=== PATIENT | female | born 1945 | race Caucasian/White ===

== ENCOUNTER 2018-09-02 10:31 | Emergency (ER) | payer MEDICARE, OTHER, SELFPAY ==
[2018-09-02 10:32] VITALS: BP 162/92; PULSE 90; RESP 16; TEMP 36.6; O2SAT 99; BMI 34.9
--- NOTE | 2018-09-02 10:55 | CT_ITS ---
STUDY: CT ABDOMEN AND PELVIS WITHOUT CONTRAST REASON FOR EXAM: Female, 73 years old. One-week history of left flank pain. RADIATION DOSAGE (If Supplied By Facility): CTDIvol = ( 17.74 ) mGy, DLP = ( 917.58 ) mGycm TECHNIQUE: Transaxial images were obtained from the dome of the diaphragm to the symphysis pubis without oral contrast, and without intravenous contrast. Sagittal and coronal images were reconstructed. Individualized dose optimization techniques were used for this CT. COMPARISON: None. FINDINGS: The visualized lung bases are unremarkable. The visualized portions of the heart are within normal limits. Normal liver. Normal gallbladder and extrahepatic biliary system. Normal spleen. Normal pancreas. Normal bilateral adrenal glands. There is a 5.5 mm calculus in the upper midportion of the right kidney. Horseshoe kidney. Findings suggestive of a left parapelvic renal cyst measuring 5.4 cm x 4.2 cm. I cannot rule out left hydronephrosis. There is a small hiatal hernia. Normal small intestine. There are multiple colonic diverticula consistent with diverticulosis. The appendix is visualized and appears normal. There is diffuse atherosclerotic calcification of the abdominal aorta and the major visceral branches, without a demonstrated aneurysm. Normal inferior vena cava. Normal retroperitoneum. Normal urinary bladder. There is absence of the uterus consistent with a prior hysterectomy. Normal abdominal wall. There are diffuse degenerative changes of the visualized lumbar spine. Straightening of the normal lumbar lordosis. CT/Abdomen/Pelvis without Cont IMPRESSION: Horseshoe kidney. 5.5 mm nonobstructive calculus in the mid inferior aspect of the right kidney. Findings suggestive of a left parapelvic cyst. Correlation with ultrasound is recommended. Electronically Signed: Judson Guerra MD at 12:33 EST Tel [phone], Service support ,
--- NOTE | 2018-09-02 10:56 | EKG12_ITS ---
Test Reason : FLANK PAIN Blood Pressure : / mmHG Vent. Rate : 069 BPM Atrial Rate : 069 BPM P-R Int : 180 ms QRS Dur : 094 ms QT Int : 412 ms P-R-T Axes : 033 -20 022 degrees QTc Int : 441 ms Normal sinus rhythm Normal ECG No previous ECGs available Confirmed by LILLIAN HERNANDEZ, HERVE ([id number]), avid editor RACHEL PATEL ([id number] on 09/11/2018 4:04:41 PM Referred By: MEGHNA Confirmed By:HERVE SNYDER MD
--- NOTE | 2018-09-02 10:57 | ED.VISSUMM ---
- ER Visit Summary Date of Service: 09/02/18 Chief Complaint: Left flank pain History of Present Illness: The patient is a 73 F who presents for 1 week of intermittent left-sided flank pain. Pain is described as sharp and worse with standing and walking. Patient is tried heat, Tylenol and ibuprofen with some relief. She has had associated nausea but denies fever, chest pain, shortness of breath, cough, abdominal pain, vomiting, diarrhea or constipation. She denies dysuria, hematuria but has had some frequency. She states she has been drinking more water thinking it might be a kidney issue. She has no prior history of kidney stones. History remarkable for GERD. Patient is not on any medications at this time. She does not drink or use tobacco. Physical Examination: Vital signs: afebrile, hemodynamically stable, no hypoxia on room air General: well nourished, well developed, in no distress Skin: warm, dry, no rash, no pallor HEENT: normocephalic and atraumatic; PERRL, EOMI, moist mucous membranes Cardiovascular: regular rate and rhythm without murmurs, no peripheral edema, 2+ pulses all distal extremities Respiratory: No increased work of breathing, lungs are clear to auscultation bilaterally, no rales, rhonchi or wheezing, no chest wall tenderness, no vesicular rash Abdominal: Abdomen is soft, nontender with normoactive bowel sounds, no guarding or rebound, no masses no CVA tenderness Back: No midline tenderness, deformities or step-offs, no paraspinal tenderness MSK: Moves all extremities, no deformities, normal strength Neuro: Awake and alert, oriented ?4. No facial droop, sensation and motor function intact and symmetric Test Results: Abnormal Lab Results 09/02/18 09/02/18 09/02/18 10:46 11:05 11:05 WBC 6.1 RBC 4.84 Hgb 14.6 Hct 42.2 MCV 87.2 MCH 30.2 MCHC 34.6 RDW 11.8 RDW Differential 37.5 Plt Count 308 MPV 10.3 Immature Gran % (Auto) 0.200 Neut % (Auto) 56.6 Lymph % (Auto) 31.8 [place] % (Auto) 9.5 Eos % (Auto) 0.8 Baso % (Auto) 1.1 H Absolute Neuts (auto) 3.5 Absolute Lymphs (auto) 1.94 Total Counted Not Reportable Sodium 134 L Potassium 3.4 L Chloride 97 L Carbon Dioxide 26.0 Anion Gap 11 BUN 8 Creatinine 0.62 Estim Creat Clear Calc 41.45 Est GFR (MDRD) Af Amer 121 Est GFR (MDRD) Non-Af 100 BUN/Creatinine Ratio 12.8 Glucose 133 H Calcium 8.7 Total Bilirubin 0.50 AST 22 ALT 32 Alkaline Phosphatase 64 Troponin I < 0.015 Total Protein 7.1 Albumin 3.7 Globulin 3.4 Albumin/Globulin Ratio 1.1 Lipase 106 Urine Color Yellow Urine Clarity Sl. Cloudy Urine pH 7.0 Ur Specific [place] 1.010 Urine Protein 15 H Urine Glucose (UA) Normal Urine Ketones 15 H Urine Occult Blood 25 H Urine Nitrite Positive H Urine Bilirubin Negative Urine Urobilinogen Normal Ur Leukocyte Esterase 500 H Urine RBC 0-5 SEEN Urine WBC 10-25 SEEN Ur Squamous Epith Cells 0-5 SEEN Urine Bacteria 4+ Urine Mucus 0 SEEN Clinical Impression(s) from Imaging Studies Abdomen/Pelvis CT 09/02/18 10:55 IMPRESSION: Horseshoe kidney. 5.5 mm nonobstructive calculus in the mid inferior aspect of the right kidney. Findings suggestive of a left parapelvic cyst. Correlation with ultrasound is recommended. Electronically Signed: Judson Guerra MD at 12:33 EST Tel [phone], Service support , Chest X-Ray 09/02/18 11:15 IMPRESSION: Hyperinflation. No acute abnormality is seen. Electronically Signed: Judson Guerra MD at 12:33 EST Tel [phone], Service support , Medications Given Discontinued Medications Hydrocodone Bitart/Acetaminophen ([place] 5mg-325mg) 1 tablet PO X1 ONE Stop: 09/02/18 14:07 Last Admin: 09/02/18 14:20 Dose: 1 tablet Cephalexin (Keflex) 500 mg PO X1 ONE Stop: 09/02/18 14:07 Last Admin: 09/02/18 14:20 Dose: 500 mg Sodium Chloride () 1,000 mls @ 250 mls/hr IV .Q4H HEMALATHA Last Admin: 09/02/18 11:02 Dose: 250 mls/hr Emergency Department Course and Treatment: Patient was offered and declined pain medication. She is complaining of intermittent left-sided flank pain, with no significant findings on exam that would be unequivocal for a musculoskeletal back pain. Her pain is located in the left thoracic back, and she states it feels more like an inside pain. Workup was performed to evaluate for renal or other intra-abdominal pathology, as well as lung or cardiac pathology, given that she is an elderly female. Chest x-ray showed no infiltrates or acute process. CT flank showed a horseshoe kidney without any noted perinephric stranding or obstructing stones. EKG showed sinus rhythm without ischemia or ectopy. Troponin negative. No leukocytosis. No electrolyte derangements. Urine was positive for infection. Patient was afebrile and had minimal pain while in the emergency department. She did request pain medication finally was given 1 dose of [place]. Patient's workup is most consistent with an early pyelonephritis in the flank pain in the urine infection. Patient is very well-appearing, has unremarkable lab work and is afebrile. She was amenable to oral antibiotic treatment. She was started on keflex for 14 days to follow-up with her doctor for reevaluation if she is not having improvement. Culture is pending. Patient given return precautions. Discharged home well-appearing. Treatment Plan: [] Disposition: [] Impression: Left flank pain, early pyelonephritis This note was generated with [employer] dictation software. It may contain incorrect words, spelling, and punctuation that were not noted in review of the chart prior to signing ED Disposition - Plan for ED Patient: Disposition: Home or Assisted Living Chief Complaint: Flank Pain Instructions: ED Kidney Infec Female Prescriptions: Hydrocodone Bitart/Apap 5-325 [[place] 5MG-325MG] 1 tab PO Q6H PRN PRN 3 Days #8 tab PRN Reason: Pain Cephalexin [Keflex] 500 mg PO Q12 #28 cap Referrals: Sulema Mullins [Primary Care Provider] - 3-5 Days if not improving Additional Instructions: Take the antibiotic as prescribed for your kidney infection. If you develop a high fever, inability to eat, severe abdominal pain, uncontrolled vomiting, or have any other new or concerning symptoms, please return immediately to the emergency department for another evaluation. Follow-up with your doctor if you are not having improvement in 3 days. Continue to use Tylenol and ibuprofen for mild to moderate pain. You may use the norco for severe or nighttime pain. Do not do any dangerous activities, such as driving or walking up and down stairs while taking the norco, as it may make you sleepy or dizzy. If you have any worsening of your condition or any new concerning symptoms, please return immediately to the emergency department for another evaluation.
--- NOTE | 2018-09-02 11:01 | ED.DCSUM_ITS ---
- ER Visit Summary Date of Service: 09/02/18 Chief Complaint: Left flank pain History of Present Illness: The patient is a 73 F who presents for 1 week of intermittent left-sided flank pain. Pain is described as sharp and worse with standing and walking. Patient is tried heat, Tylenol and ibuprofen with some relief. She has had associated nausea but denies fever, chest pain, shortness of breath, cough, abdominal pain, vomiting, diarrhea or constipation. She denies dysuria, hematuria but has had some frequency. She states she has been drinking more water thinking it might be a kidney issue. She has no prior history of kidney stones. History remarkable for GERD. Patient is not on any medications at this time. She does not drink or use tobacco. Physical Examination: Vital signs: afebrile, hemodynamically stable, no hypoxia on room air General: well nourished, well developed, in no distress Skin: warm, dry, no rash, no pallor HEENT: normocephalic and atraumatic; PERRL, EOMI, moist mucous membranes Cardiovascular: regular rate and rhythm without murmurs, no peripheral edema, 2+ pulses all distal extremities Respiratory: No increased work of breathing, lungs are clear to auscultation bilaterally, no rales, rhonchi or wheezing, no chest wall tenderness, no vesicul ar rash Abdominal: Abdomen is soft, nontender with normoactive bowel sounds, no guarding or rebound, no masses no CVA tenderness Back: No midline tenderness, deformities or step-offs, no paraspinal tenderness MSK: Moves all extremities, no deformities, normal strength Neuro: Awake and alert, oriented ?4. No facial droop, sensation and motor function intact and symmetric Test Results: Abnormal Lab Results 09/02/18 09/02/18 09/02/18 10:46 11:05 11:05 WBC 6.1 RBC 4.84 Hgb 14.6 Hct 42.2 MCV 87.2 MCH 30.2 MCHC 34.6 RDW 11.8 RDW Differential 37.5 Plt Count 308 MPV 10.3 Immature Gran % (Auto) 0.200 Neut % (Auto) 56.6 Lymph % (Auto) 31.8 [place] % (Auto) 9.5 Eos % (Auto) 0.8 Baso % (Auto) 1.1 H Absolute Neuts (auto) 3.5 Absolute Lymphs (auto) 1.94 Total Counted Not Reportable Sodium 134 L Potassium 3.4 L Chloride 97 L Carbon Dioxide 26.0 Anion Gap 11 BUN 8 Creatinine 0.62 Estim Creat Clear Calc 41.45 Est GFR (MDRD) Af Amer 121 Est GFR (MDRD) Non-Af 100 BUN/Creatinine Ratio 12.8 Glucose 133 H Calcium 8.7 Total Bilirubin 0.50 AST 22 ALT 32 Alkaline Phosphatase 64 Troponin I < 0.015 Total Protein 7.1 Albumin 3.7 Globulin 3.4 Albumin/Globulin Ratio 1.1 Lipase 106 Urine Color Yellow Urine Clarity Sl. Cloudy Urine pH 7.0 Ur Specific [place] 1.010 Urine Protein 15 H Urine Glucose (UA) Normal Urine Ketones 15 H Urine Occult Blood 25 H Urine Nitrite Positive H Urine Bilirubin Negative Urine Urobilinogen Normal Ur Leukocyte Esterase 500 H Urine RBC 0-5 SEEN Urine WBC 10-25 SEEN Ur Squamous Epith Cells 0-5 SEEN Urine Bacteria 4+ Urine Mucus 0 SEEN Clinical Impression(s) from Imaging Studies Abdomen/Pelvis CT 09/02/18 10:55 IMPRESSION: Horseshoe kidney. 5.5 mm nonobstructive calculus in the mid inferior aspect of the right kidney. Findings suggestive of a left parapelvic cyst. Correlation with ultrasound is recommended. Electronically Signed: Judson Guerra MD at 12:33 EST Tel [phone], Service support , Chest X-Ray 09/02/18 11:15 IMPRESSION: Hyperinflation. No acute abnormality is seen. Electronically Signed: Judson Guerra MD at 12:33 EST Tel [phone], Service support , Medications Given Discontinued Medications Hydrocodone Bitart/Acetaminophen ([place] 5mg-325mg) 1 tablet PO X1 ONE Stop: 09/02/18 14:07 Last Admin: 09/02/18 14:20 Dose: 1 tablet Cephalexin (Keflex) 500 mg PO X1 ONE Stop: 09/02/18 14:07 Last Admin: 09/02/18 14:20 Dose: 500 mg Sodium Chloride () 1,000 mls @ 250 mls/hr IV .Q4H HEMALATHA Last Admin: 09/02/18 11:02 Dose: 250 mls/hr Emergency Department Course and Treatment: Patient was offered and declined pain medication. She is complaining of intermittent left-sided flank pain, with no significant findings on exam that would be unequivocal for a musculoskeletal back pain. Her pain is located in the left thoracic back, and she states it feels more like an inside pain. Workup was performed to evaluate for renal or other intra-abdominal pathology, as well as lung or cardiac pathology, given that she is an elderly female. Chest x-ray showed no infiltrates or acute process. CT flank showed a horseshoe kidney without any noted perinephric stranding or obstructing stones. EKG showed sinus rhythm without ischemia or ectopy. Troponin negative. No leukocytosis. No electrolyte derangements. Urine was positive for infection. Patient was afebrile and had minimal pain while in the emergency department. She did request pain medication finally was given 1 dose of [place]. Patient's workup is most consistent with an early pyelonephritis in the flank pain in the urine infection. Patient is very well- appearing, has unremarkable lab work and is afebrile. She was amenable to oral antibiotic treatment. She was started on keflex for 14 days to follow-up with her doctor for reevaluation if she is not having improvement. Culture is pending. Patient given return precautions. Discharged home well-appearing. Treatment Plan: [] Disposition: [] Impression: Left flank pain, early pyelonephritis This note was generated with [employer] dictation software. It may contain incorrect words, spelling, and punctuation that were not noted in review of the chart p rior to signing ED Disposition - Plan for ED Patient: Disposition: Home or Assisted Living Chief Complaint: Flank Pain Instructions: ED Kidney Infec Female Prescriptions: Hydrocodone Bitart/Apap 5-325 [[place] 5MG-325MG] 1 tab PO Q6H PRN PRN 3 Days #8 tab PRN Reason: Pain Cephalexin [Keflex] 500 mg PO Q12 #28 cap Referrals: Sulema Mullins [Primary Care Provider] - 3-5 Days if not improving Additional Instructions: Take the antibiotic as prescribed for your kidney infection. If you develop a high fever, inability to eat, severe abdominal pain, uncontrolled vomiting, or have any other new or concerning symptoms, please return immediately to the emergency department for another evaluation. Follow-up with your doctor if you are not having improvement in 3 days. Continue to use Tylenol and ibuprofen for mild to moderate pain. You may use the norco for severe or nighttime pain. Do not do any dangerous activities, such as driving or walking up and down stairs while taking the norco, as it may make you sleepy or dizzy. If you have any worsening of your condition or any new concerning symptoms, please return immediately to the emergency department for another evaluation.
[2018-09-02] MEDS: 0.9% Normal Saline 1,000 ML 250 ML IV (11:02)
[2018-09-02 11:07] LABS: Mucous, Urine 0 SEEN /hpf (<or=2+)
[2018-09-02 11:09] LABS: Color, Urine Yellow (Yellow); Glucose, Dipstick Normal (Normal); Ketone-Dipstick 15 mg/dl (Negative); Leukocyte Esterase-Dipstick 500 /ul (Negative); Nitrite-Dipstick Positive (Negative); Occult Blood-Urine 25 /ul (Negative); Protein-Dipstick 15 mg/dl (Negative); Urine Bilirubin Dipstick Negative (Negative); Urine Clarity Sl. Cloudy (Clear); Urine Urobilinogen Normal (Normal)
[2018-09-02 11:14] LABS: Absolute Lymphocyte Count 1.94 X10^3/ul (0.83-4.51); Absolute Neutrophil Count 3.5 X10^3/uL (2.0-7.7); Basophil# 0.07 X10^3/uL; Basophil% 1.1 % (0-1); Eosinophil# 0.05 X10^3/uL; Eosinophils% 0.8 % (0-5); Hematocrit 42.2 % (37-47); Hemoglobin 14.6 g/dl (12.0-15.0); Lymphocyte # 1.94 X10^3/ul (4.0); Lymphocyte % 31.8 % (19-41); Mean Corp Hgb Conc 34.6 g/gl (32-36); Mean Corpuscular Hgb 30.2 pg (27.0-32.0); Mean Corpuscular Volume 87.2 fL (81-99); Mean Platelet Vol. 10.3 fl (6.2-12.0); Monocyte# 0.58 X10^3/uL; Monocyte% 9.5 % (0-10); Neutrophil # 3.46 X10^3/uL (2.7-7.7); Neutrophil % 56.6 % (47-70); Platelet Count 308 K/mm3 (150-450); RBC Distribution Width CV 11.8 % (11.6-14.6); RBC Distribution Width SD 37.5 fl (35.1-43.9); Red Blood Count 4.84 M/mm3 (4.2-5.4); White Blood Count 6.1 K/mm3 (4.4-11.0)
[2018-09-02 11:15] LABS: POSITIVE COUNT NO; POSITIVE DIFFERENTIAL NO; POSITIVE MORPHOLOGY NO
--- NOTE | 2018-09-02 11:15 | RAD_ITS ---
STUDY: X-RAY CHEST REASON FOR EXAM: Female, 73 years old. Left-sided flank pain for one week. TECHNIQUE: PA and lateral views of the chest. COMPARISON: None. FINDINGS: Elevation of the right hemidiaphragm. Scattered calcified granulomas. No acute abnormality is seen. There is no demonstrated pleural abnormality. Normal size heart. Normal mediastinum and helena. Normal visualized pulmonary arteries. There is atherosclerotic calcification of the aortic arch with tortuosity. Normal visualized thoracic spine. Normal visualized ribs, clavicles, and shoulders. There is no demonstrated abnormality of the visualized soft tissue structures of the upper abdomen. RAD/Chest PA and Lateral IMPRESSION: Hyperinflation. No acute abnormality is seen. Electronically Signed: Judson Guerra MD at 12:33 EST Tel [phone], Service support ,
[2018-09-02 11:16] LABS: Red Blood Cells-Urine 0-5 SEEN /hpf (0-5); White Blood Cells 10-25 SEEN /hpf (0-5)
[2018-09-02 11:17] LABS: Bacteria 4+ /hpf (None Seen); Squamous Epithelial Cells - UA 0-5 SEEN /hpf (5-10)
[2018-09-02 11:29] LABS: ALB/GLOB Ratio 1.1 RATIO (0.9-2.4); AST(SGOT) 22 U/L (15-37); Alanine Aminotransfer ALT/SGPT 32 U/L (13-56); Albumin, Serum 3.7 g/dL (3.2-5.0); Alkaline Phosphatase 64 U/L (45-117); Anion Gap 11 (5-15); BUN 8 mg/dL (7-18); BUN/Creat Ratio 12.8 RATIO (10-20); Calcium,Total 8.7 mg/dL (8.5-10.1); Chloride 97 mmol/L (98-107); Creatinine, Serum 0.62 mg/dL (0.55-1.02); EST Glomerular Filtration Rate 100 mL/min (>60); Est Glom Filt Rate - Afr Amer 121 mL/min (>60); Estimated Creatinine Clearance 41.45 ml/min; Globulin 3.4 g/dL (2.2-4.2); Glucose 133 mg/dL (74-106); Lipase 106 U/L (73-393); Potassium 3.4 mmol/L (3.5-5.1); Protein, Total 7.1 g/dL (6.4-8.2); Sodium Level 134 mmol/L (136-145)
--- NOTE | 2018-09-02 14:07 | ED.DEP ---
ED Disposition - Plan for ED Patient: Disposition: Home or Assisted Living Chief Complaint: Flank Pain Instructions: ED Kidney Infec Female Prescriptions: Hydrocodone Bitart/Apap 5-325 [[place] 5MG-325MG] 1 tab PO Q6H PRN PRN 3 Days #8 tab PRN Reason: Pain Cephalexin [Keflex] 500 mg PO Q12 #28 cap Referrals: Sulema Mullins [Primary Care Provider] - 3-5 Days if not improving Additional Instructions: Take the antibiotic as prescribed for your kidney infection. If you develop a high fever, inability to eat, severe abdominal pain, uncontrolled vomiting, or have any other new or concerning symptoms, please return immediately to the emergency department for another evaluation. Follow-up with your doctor if you are not having improvement in 3 days. Continue to use Tylenol and ibuprofen for mild to moderate pain. You may use the norco for severe or nighttime pain. Do not do any dangerous activities, such as driving or walking up and down stairs while taking the norco, as it may make you sleepy or dizzy. If you have any worsening of your condition or any new concerning symptoms, please return immediately to the emergency department for another evaluation.
--- NOTE | 2018-09-02 14:10 | DCINST.ED_ITS ---
ED Disposition - Plan for ED Patient: Disposition: Home or Assisted Living Chief Complaint: Flank Pain Instructions: ED Kidney Infec Female Prescriptions: Hydrocodone Bitart/Apap 5-325 [[place] 5MG-325MG] 1 tab PO Q6H PRN PRN 3 Days #8 tab PRN Reason: Pain Cephalexin [Keflex] 500 mg PO Q12 #28 cap Referrals: Sulema Mullins [Primary Care Provider] - 3-5 Days if not improving Additional Instructions: Take the antibiotic as prescribed for your kidney infection. If you develop a high fever, inability to eat, severe abdominal pain, uncontrolled vomiting, or have any other new or concerning symptoms, please return immediately to the emergency department for another evaluation. Follow-up with your doctor if you are not having improvement in 3 days. Continue to use Tylenol and ibuprofen for mild to moderate pain. You may use the norco for severe or nighttime pain. Do not do any dangerous activities, such as driving or walking up and down stairs while taking the norco, as it may make you sleepy or dizzy. If you have any worsening of your condition or any new concerning symptoms, please return immediately to the emergency department for another evaluation.
[2018-09-02] MEDS: HYDROcodone Bitartrate/Apap 5/325 Tablet PO (14:20)
[2018-09-02] MEDS: Cephalexin 250 MG Capsule 500 MG PO (14:20)
[2018-09-02 14:21] VITALS: BP 138/63; PULSE 65; RESP 12; O2SAT 97
--- NOTE | 2018-09-02 14:44 | ED.RN ---
DISCHARGE INSTRUCTIONS GIVEN TO AND REVIEWED WITH PATIENT, PATIENT DENIES QUESTIONS OR CONCERNS AND VOICES UNDERSTANDING OF DISCHARGE INSTRUCTIONS. PT AMBULATES OUT OF ROOM WITHOUT DIFFICULTY.
== END 2018-09-02 14:44 | disposition home or self-care (01) ==
PROVIDERS: Emergency Provider Emergency Medicine; Family Provider Family Medicine; PCP Family Medicine
DX: N12 Tubulo-interstitial nephritis, not specified as acute or chronic (principal); Q63.1 Lobulated, fused and horseshoe kidney; R11.0 Nausea; K21.9 Gastro-esophageal reflux disease without esophagitis; Z79.899 Other long term (current) drug therapy
CPT/HCPCS: 71046; 74176; 80053; 81001; 83690; 84484; 85025; 87077; 87086; 87088; 87186; 93005; 96360; 96361; 99283; J7030

== ENCOUNTER 2023-03-16 10:40 | Emergency (ER) | payer MEDICARE, OTHER, SELFPAY ==
[2023-03-16 10:42] VITALS: BP 127/74; PULSE 116; RESP 14; TEMP 36.6; O2SAT 98; BMI 35.9
--- NOTE | 2023-03-16 11:18 | ED.VIS.FEGU ---
HPI <JAKE Graves - Last Filed: 03/16/23 12:43> HPI - Female History of Present Illness Chief Complaint: Vag Bleeding Narrative Narrative: Patient presenting today with concerns that after she urinated yesterday, she noticed blood when wiping. She denies grossly bloody hematuria. She has been concerned that she has a UTI over the past week because she has been having increased urinary frequency and dysuria. She has been trying to drink cranberry juice and more water to treat this but has not had her urine evaluated to confirm a UTI or been on antibiotics. She has not noticed any blood from the vaginal canal and has not had to wear a pad. She has a history of a total hysterectomy. She denies any rectal bleeding, blood in the stool, or history of hemorrhoids. She denies any fever, chills, abdominal pain, pelvic pain, vaginal pain, nausea, vomiting PFSH <JAKE Graves - Last Filed: 03/16/23 12:43> PFSH Medical History no medical history Home Medications calcium carbonate 600 mg-vitamin D3 10 mcg (400 unit) tablet 2 ea PO DAILY 09/02/18 [History Last Taken Unknown] omeprazole 20 mg capsule,delayed release 20 mg PO DAILY 09/02/18 [History Last Taken Unknown] cephalexin 500 mg capsule 500 mg PO Q6 7 days #27 CAPSULES 03/16/23 [Rx Last Taken Unknown] Allergy/AdvReac Type Severity Reaction Status Date / Time No Known Allergies Allergy Verified 03/16/23 10:42 Surgical History no surgical history Social History Smoking Status: Former smoker ROS <JAKE Graves - Last Filed: 03/16/23 12:43> ROS ED Constitutional Constitutional ED: Denies chills or fever(s) Cardiovascular Cardiovascular: Denies chest pain Respiratory/Chest Respiratory/Chest: Denies cough or dyspnea Gastrointestinal Gastrointestinal: Denies abdominal pain, nausea or vomiting Genitourinary Genitourinary ED: Reports dysuria and urinary frequency Musculoskeletal Musculoskeletal: Denies arthralgias or myalgias Integumentary Denies abscess, Abrasions or rash Neurologic Neurologic: Denies weakness EXAM <JAKE Graves - Last Filed: 03/16/23 12:43> Physical Exam Const Vital Signs: 03/16/23 10:42 Temperature 98 F Temperature Source Temporal Pulse Rate 116 H Respiratory Rate 14 Blood Pressure 127/74 H Blood Pressure Mean 91 Pulse Ox 98 Oxygen Delivery Method Room Air Positive well nourished, well developed and no apparent distress General Appearance ED: well developed HEENT Reports normocephalic and head/scalp atraumatic Mouth ED: Yes moist mucous membranes normal Eyes PERRL and EOMs intact bilaterally Neck full ROM and supple Chest Wall inspection of chest normal Resp normal respiratory effort and clear to auscultation bilaterally Cardio regular rate and regular rhythm GI soft to palpation, non-tender, non-distended and no masses Back/Spine normal ROM and normal to inspection Extremity normal to inspection and full ROM Neuro oriented x3, CN's II-XII intact bilaterally, moves all extremities, no focal motor deficits and no sensory deficits noted Sensorium / Orientation: awake and alert Psych mental status grossly normal and thought process normal Skin no rashes or lesions noted and no wounds <Attila Kelly MD - Last Filed: 03/16/23 15:48> Physical Exam Const Vital Signs: 03/16/23 10:42 Temperature 98 F Temperature Source Temporal Pulse Rate 116 H Respiratory Rate 14 Blood Pressure 127/74 H Blood Pressure Mean 91 Pulse Ox 98 Oxygen Delivery Method Room Air MDM <JAKE Graves - Last Filed: 03/16/23 12:43> [facility] Narrative Medical decision making narrative: Patient presenting today with concerns that she could have a UTI. She reports increased urinary frequency and dysuria over the past week. Yesterday, she saw blood after she wiped after urinating. No gross hematuria, she denies vaginal bleeding, she has not had to use a pad. She denies rectal bleeding. She reports she has not noticed any of the blood today. UA obtained to rule out UTI and is positive. She will be started on Keflex with first dose here. She is to follow-up with her PCP. Urine culture will be obtained she will be discharged home in stable condition. She is comfortable with plan. Lab Data Attestation: I reviewed the patient's lab results. Lab results narrative: Positive nitrites, blood in the urine, 500 leukocyte esterase, 2+ urine bacteria, 25-50 urine WBC Labs: Laboratory Results - last 24 hr 03/16/23 11:55 Urine Color Straw Urine Clarity Sl. Cloudy Urine pH 6.5 Ur Specific [place] 1.005 Urine Protein Negative Urine Glucose (UA) Normal Urine Ketones Negative Urine Occult Blood 50 H Urine Nitrite Positive H Urine Bilirubin Negative Urine Urobilinogen Normal Ur Leukocyte Esterase 500 H Urine RBC 0-5 SEEN Urine WBC 25-50 SEEN Ur Squamous Epith Cells 0 SEEN Urine Bacteria 2+ Urine Mucus 0 SEEN <Attila Kelly MD - Last Filed: 03/16/23 15:48> MDM MDM Narrative Medical decision making narrative: Patient presenting today with concerns that she could have a UTI. She reports increased urinary frequency and dysuria over the past week. Yesterday, she saw blood after she wiped after urinating. No gross hematuria, she denies vaginal bleeding, she has not had to use a pad. She denies rectal bleeding. She reports she has not noticed any of the blood today. UA obtained to rule out UTI and is positive. She will be started on Keflex with first dose here. She is to follow-up with her PCP. Urine culture will be obtained she will be discharged home in stable condition. She is comfortable with plan. I have personally performed a face to face assessment of the patient and have reviewed the YONG Note. I performed a substantive portion of the visit including all aspects of the following. My humphries findings include: History is wiped with toilet tissue after urinating, positive blood yesterday Exam is afebrile. Vital signs noted. Abdomen soft and nontender with normal active bowel sounds. Medical Decision Making: Patient has had hysterectomy so I do not think she has uterine bleeding/vaginal bleeding. Her symptoms have essentially resolved. I do not feel this is rectal bleeding. UA obtained and reviewed she has 25-50 WBCs with 500 leukocyte esterase and positive nitrites. I do feel that this is more of a urinary tract infection/cystitis. There are no current RBCs/0-5. Antibiotics. Discharge. Follow-up primary care. Return instructions were reviewed. Other additions or changes: [None] History & Record Review Discussion w/independent historian: Patient Additional record(s) reviewed:: Prior ED visit Lab Data Labs: Laboratory Results - last 24 hr 03/16/23 11:55 Urine Color Straw Urine Clarity Sl. Cloudy Urine pH 6.5 Ur Specific [place] 1.005 Urine Protein Negative Urine Glucose (UA) Normal Urine Ketones Negative Urine Occult Blood 50 H Urine Nitrite Positive H Urine Bilirubin Negative Urine Urobilinogen Normal Ur Leukocyte Esterase 500 H Urine RBC 0-5 SEEN Urine WBC 25-50 SEEN Ur Squamous Epith Cells 0 SEEN Urine Bacteria 2+ Urine Mucus 0 SEEN Discharge Plan Triage Chief Complaint: Vag Bleeding ED Midlevel Provider: Naz Deleon ED Provider: Attila Kelly Dx/Rx/DC Orders Clinical Impression: Acute UTI Instructions: ED Cystitis Female Adult Prescriptions: New cephalexin 500 mg capsule 500 mg PO Q6 7 Days Qty: 27 0RF No Action omeprazole 20 MG capsule 20 mg PO DAILY calcium carbonate-vitamin D3 1 EACH tablet 2 ea PO DAILY Primary Care Provider: Sulema Mullins Referrals: Sulema Mullins DO [Primary Care Provider] - 5-7 Days Activity Restrictions/Additional Instructions: Take antibiotics as instructed, follow-up with your PCP and return for any worsening of symptoms Disposition Disposition: Home, Self Care Discharge Date/Time: 03/16/23 12:40
[2023-03-16 11:59] LABS: Mucous, Urine 0 SEEN /hpf (<or=2+); Squamous Epithelial Cells - UA 0 SEEN /hpf (5-10)
[2023-03-16 12:09] LABS: Color, Urine Straw (Yellow); Glucose, Dipstick Normal (Normal); Ketone-Dipstick Negative (Negative); Leukocyte Esterase-Dipstick 500 /ul (Negative); Nitrite-Dipstick Positive (Negative); Occult Blood-Urine 50 /ul (Negative); Protein-Dipstick Negative (Negative); Specific Gravity, Urine 1.005 (1.002-1.030); Urine Bilirubin Dipstick Negative (Negative); Urine Clarity Sl. Cloudy (Clear); Urine Urobilinogen Normal (Normal); Urine pH 6.5 (5.0 - 8.0)
[2023-03-16 12:17] LABS: Bacteria 2+ /hpf (None Seen); Red Blood Cells-Urine 0-5 SEEN /hpf (0-5); White Blood Cells 25-50 SEEN /hpf (0-5)
[2023-03-16] MEDS: Cephalexin 250 MG Capsule 500 MG PO (12:38)
== END 2023-03-16 12:40 | disposition home or self-care (01) ==
LOC: ED 12:37
PROVIDERS: Physician Assistant; Emergency Provider Emergency Medicine; PCP Family Medicine; Visit Provider Emergency Medicine
DX: N39.0 Urinary tract infection, site not specified (principal); R31.9 Hematuria, unspecified; R35.0 Frequency of micturition; R30.0 Dysuria; Z90.710 Acquired absence of both cervix and uterus; Z87.891 Personal history of nicotine dependence
CPT/HCPCS: 81001; 99283

== ENCOUNTER → 2023-06-11 | Outpatient (CLI) | payer MEDICARE, OTHER, SELFPAY ==
--- NOTE | 2023-06-11 08:18 | EKG12_ITS ---
Test Reason : PRE OP Blood Pressure : / mmHG Vent. Rate : 086 BPM Atrial Rate : 071 BPM P-R Int : 000 ms QRS Dur : 086 ms QT Int : 384 ms P-R-T Axes : 000 007 -12 degrees QTc Int : 459 ms Atrial fibrillation Low voltage QRS Abnormal ECG Confirmed by SHEKHAR HERNANDEZ, IMELDA ([id number]), assistant production editor RAFI OLGUIN ([id number]) on 06/12/2023 1:53:03 PM Referred By: Kris De Jesus Confirmed By:TREE CORRIGAN MD
--- NOTE | 2023-06-11 08:19 | CT_ITS ---
EXAM: CT RIGHT LOWER EXTREMITY WITHOUT INTRAVENOUS CONTRAST CLINICAL INDICATION: OSTEOARTHRITIS TECHNIQUE: Helically acquired images were obtained of the right lower extremity without intravenous contrast. 2-D reformats were performed by the technologist. CTDIvol = ( 19.13 ) mGy, DLP = ( 1156.77 ) mGycm This CT exam was performed using one or more of the following dose reduction techniques: automated exposure control, adjustment of the mA and/or kV according to patient size, and/or use of iterative reconstruction technique. COMPARISON: No relevant prior studies available. FINDINGS: BONES/JOINTS: Greater trochanteric enthesopathy. Small to moderate suprapatellar joint effusion with intra-articular ossific body measuring 8 mm located adjacent the peripheral aspect of the medial femoral condyle. Soft swelling about the ankle, worse along the lateral malleolus. 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 No acute or healing fracture or malalignment. No unusual lytic or sclerotic lesions of bone. SOFT TISSUES: Unremarkable. No soft tissue swelling or gas. No radiopaque foreign bodies throughout the exam. OTHER FINDINGS: Presumed preoperative planning study performed. No organized fluid collections. CT/Extremity Lower without Contra IMPRESSION: Preoperative planning study. Small to moderate suprapatellar joint effusion with intra-articular ossific body measuring 8 mm located adjacent the peripheral aspect of the medial femoral condyle. 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 Electronically Signed: Adria Andrade MD at 2:28 EDT ,
[2023-06-11 09:21] LABS: Hematocrit 42.3 % (37-47); Hemoglobin 13.4 g/dL (12.0-15.0); Mean Corp Hgb Conc 31.7 g/dL (32-36); Mean Corpuscular Hgb 29.7 pg (27.0-32.0); Mean Corpuscular Volume 93.8 fL (81-99); Mean Platelet Vol. 10.6 fl (6.2-12.0); Platelet Count 284 K/mm3 (150-450); RBC Distribution Width CV 12.3 % (11.6-14.6); RBC Distribution Width SD 42.3 fl (35.1-43.9); Red Blood Count 4.51 M/mm3 (4.2-5.4); White Blood Count 5.7 K/mm3 (4.4-11.0)
[2023-06-11 09:36] LABS: Hemoglobin A1c 6.3 % (3.8-5.6)
[2023-06-11 10:21] LABS: Anion Gap 7 (5-15); BUN 13 mg/dL (7-18); BUN/Creat Ratio 18.8 RATIO (10-20); Calcium,Total 9.2 mg/dL (8.5-10.1); Chloride 105 mmol/L (98-107); Creatinine, Serum 0.69 mg/dL (0.55-1.02); EST Glomerular Filtration Rate 87 mL/min (>60); Est Glom Filt Rate - Afr Amer 105 mL/min (>60); Glucose 151 mg/dL (74-106); Potassium 3.4 mmol/L (3.5-5.1); Sodium Level 140 mmol/L (136-145)
== END | disposition home or self-care (01) ==
PROVIDERS: Physician Assistant; PCP Family Medicine; Referring Provider Orthopaedic Surgery; Visit Provider Orthopaedic Surgery
DX: Z01.810 Encounter for preprocedural cardiovascular examination (principal); I48.91 Unspecified atrial fibrillation; M17.11 Unilateral primary osteoarthritis, right knee; Z01.818 Encounter for other preprocedural examination; E78.00 Pure hypercholesterolemia, unspecified; Z79.899 Other long term (current) drug therapy; Z79.01 Long term (current) use of anticoagulants
CPT/HCPCS: 36415; 73700; 80048; 83036; 85027; 93005

== ENCOUNTER → 2023-07-03 | Outpatient (CLI) | payer MEDICARE, OTHER, SELFPAY ==
--- NOTE | 2023-07-02 | KNEE_PTH ---
PATIENT: KAMRAN CAPONE LOC: [facility] U#:[id number] AGE/SX: 78/F ROOM: RE07/03/[address]: Dr. Kris De Jesus DO : 1945 BED: DIS: 07/03/2023 SPEC #: [id number] RECD: 07/03/23 10:55 STATUS: KANDACE REQ #: [id number] JAIMEE: 07/02/23 00:[address]: Kris De Jesus DEPT: SURGICAL PATHOLOGY RECD BY: Brayan Reyes ENTERED: 07/03/23 10:56 SP TYPE: TOTAL KNEE OTHR DR: Dr. Sulema Mullins, [facility] Tissues: Knee, NOS Procedures: Decalcification bone/plaque Surgery Specimen Level IV HEADER OPERATION: Right total knee arthroplasty with robotic assistance PRE-OP DIAGNOSIS: Primary osteoarthritis right knee TISSUE SUBMITTED: Bone and soft tissue right knee MICROSCOPIC DIAGNOSIS Bone and soft tissue of right knee, total knee resection: Severe degenerative joint disease. Synovial hyperplasia. AM:gilda 07/06/2023 MICROSCOPIC DESCRIPTION Slides are reviewed. GROSS DESCRIPTION Received is one container designated bone and soft tissue right knee. The specimen consists of multiple fragments of capps-yellow bone measuring in aggregate 15.0 x 10.0 x 2.0 cm. Also in the specimen container are multiple fragments of yellow-white soft tissue measuring in aggregate 10.0 x 6.0 x 3.0 cm. A number of bony fragments contain articular surfaces consistent with tibial plateau and femoral condyle and displaying prominent osteophyte formation, eburnation and bone erosion. Cheesemaker Helper sections are submitted in two cassettes as follows: 1 - soft tissue, 2 - bone after decalcification. / AM:gilda 07/03/2023 TC:5 [facility]: [id number], [id number]
== END | disposition home or self-care (01) ==
LOC: LABSPEC 10:34
PROVIDERS: PCP Family Medicine; Referring Provider Orthopaedic Surgery; Visit Provider Orthopaedic Surgery
DX: M17.11 Unilateral primary osteoarthritis, right knee (principal)
CPT/HCPCS: 88305; 88311